=== PATIENT | male | born 1985 | race Two or more races ===

== ENCOUNTER 2018-03-28 03:43 | Emergency (ER) | payer SELFPAY ==
[2018-03-28 03:47] VITALS: BP 150/91
[2018-03-28] MEDS ORDERED: IPRATROPIUM/ALBUTEROL 3 ML DEYVIAL IH ONE (04:21)
--- NOTE | 2018-03-28 04:25 | EDPHY ---
H & P Stated Complaint: dry cough for a week and last 2 days worst with SOB Time Seen by Provider: 03/28/18 03:50 HPI/ROS: HPI The patient presents with dry cough for the last 1 week. Symptoms began slowly and have gotten progressively worse. The patient initially had subjective fevers which have now resolved. He has fits of coughing which have kept him up at night. He has developed rhinorrhea. Over the last 2 days he reports chest wall pain which is sharp and worse when he lies flat. He has not been able to sleep much tonight so that is why he comes into the ER. He was exposed to several people with a cough recently. He quit smoking about 1 month ago.. REVIEW OF SYSTEMS 10 systems were reviewed and negative with the exception of the elements mentioned in the history of present illness. PMHx: Healthy Soc Hx: Previous smoker, here with his mother PHYSICAL General Appearance: Alert, no distress Eyes: Pupils equal and round no pallor or injection ENT, Mouth: Mucous membranes moist Respiratory: There are no retractions, lungs are clear to auscultation Cardiovascular: Regular rate and rhythm Gastrointestinal: Abdomen is soft and non-tender, no masses, bowel sounds normal Neurological: A&O, moves all extremities Skin: Warm and dry, no rashes Musculoskeletal: Neck is supple non tender Extremities: symmetrical, full range of motion Psychiatric: Patient is oriented X 3, there is no agitation Source: Patient Exam Limitations: No limitations - Personal History Current Tetanus/Diphtheria Vaccine: Yes Current Tetanus Diphtheria and Acellular Pertussis (TDAP): Yes - Medical/Surgical History Hx Asthma: No Hx Chronic Respiratory Disease: No Hx Diabetes: No Hx Cardiac Disease: No Hx Renal Disease: No Hx Cirrhosis: No Hx Alcoholism: No Hx HIV/AIDS: No Hx Splenectomy or Spleen Trauma: No Other PMH: denies - Social History Smoking Status: Former smoker Constitutional: Initial Vital Signs Temperature (C) 37.1 C 03/28/18 03:44 Heart Rate 90 03/28/18 03:44 Respiratory Rate 16 03/28/18 03:44 Blood Pressure 150/91 H 03/28/18 03:44 O2 Sat (%) 95 03/28/18 03:44 O2 Delivery Mode Room Air Allergies/Adverse Reactions: No Known Allergies Allergy (Unverified 03/28/18 03:47) Home Medications: Medication Instructions Recorded Azithromycin 250 mg PO DAILY 4 Days tablet 03/28/18 Benzonatate [Tessalon Pearles (RX)] 100 mg PO TID PRN #20 cap 03/28/18 Medical Decision Making - Diagnostics EKG Interpretation: EKG: Complete interpretation has been separately recorded in the [facility] archive. Summary impression: Normal sinus rhythm Imaging Results: Chest x-ray demonstrates peribronchial thickening, interpreted by me, radiology interpretation pending. Imaging: I viewed and interpreted images myself Differential Diagnosis: 32-year-old male with about 1 week of dry cough occurring in fits now with chest pain and mild shortness of breath. On exam, vital signs are normal, lungs sound clear. Differential diagnosis includes viral URI, pneumonia, pertussis, pericarditis, pneumothorax. Chest x-ray and EKG are unremarkable. Patient could have pertussis possibly based on his clinical description of his cough. I will start him on azithromycin and antitussives. - Data Points Medications Given: Discontinued Medications Albuterol Sulfate (Proventil Inh Prepack) 1 mdi TAKEHOME EDNOW ONE Stop: 03/28/18 05:20 Last Admin: 03/28/18 05:25 Dose: 1 mdi Albuterol/Ipratropium (Duoneb) 3 ml IH EDNOW ONE Stop: 03/28/18 04:22 Last Admin: 03/28/18 04:49 Dose: 3 ml Azithromycin (Zithromax) 500 mg PO EDNOW ONE PRN Reason: Protocol Stop: 03/28/18 04:58 Last Admin: 03/28/18 05:24 Dose: 500 mg Benzonatate (Tessalon Pearles) 200 mg PO EDNOW ONE Stop: 03/28/18 04:49 Last Admin: 03/28/18 04:51 Dose: 200 mg Departure - Departure Disposition: Home, Routine, Self-Care Clinical Impression: URI (upper respiratory infection), Chest pain Condition: Good Instructions: Albuterol (By breathing), Upper Respiratory Infection (ED) Referrals: Karine Rod MD [[facility] – [place] Primary Care Provider] - As per Instructions Prescriptions: Azithromycin 250 mg PO DAILY 4 Days tablet Benzonatate [Tessalon Pearles (RX)] 100 mg PO TID PRN #20 cap PRN Reason: Cough, Mild
[2018-03-28] MEDS ORDERED: BENZONATATE 100 MG CAP PO ONE (04:48)
[2018-03-28] MEDS ORDERED: AZITHROMYCIN 250 MG TAB PO ONE (04:57)
[2018-03-28] MEDS ORDERED: ALBUTEROL INH PREPACK MDI TAKEHOME ONE (05:19)
== END 2018-03-28 05:30 | disposition home or self-care (01) ==
DX: J06.9 Acute upper respiratory infection, unspecified (principal); Z87.891 Personal history of nicotine dependence